=== PATIENT | female | born 1950 | race Caucasian/White ===

== ENCOUNTER 2023-01-13 17:11 | Emergency (ER) | payer OTHER, SELFPAY ==
[2023-01-13 17:15] VITALS: BP 122/67; PULSE 73; RESP 18; TEMP 36.1; O2SAT 97; BMI 28.3
--- NOTE | 2023-01-13 17:36 | ED.DIZZY ---
HPI - Dizziness General Chief Complaint: Dizziness/Vertigo Stated Complaint: lightheadedness,chest pain Time Seen by Provider: 01/13/23 17:23 History of Present Illness HPI Narrative: This 72-year-old female comes in reporting intermittent episodes of lightheadedness over the past week or so. She did have some nausea but states that she went to urgent care elsewhere and received a medication which causal symptoms to be managed properly. She reports some rib pain below her breasts bilaterally. She is very hard of hearing. She is not on any other new medications. She does have diabetes. She does not report any shortness of breath or diaphoresis. She has not had any vomiting or diarrhea. Related Data Home Medications Medication Instructions Recorded Confirmed amlodipine 5 mg tablet 5 mg PO DAILY 01/13/23 01/13/23 glipizide 10 mg tablet, extended 10 mg PO BID 01/13/23 01/13/23 release 24 hr levothyroxine 100 mcg tablet 100 mcg PO DAILY 01/13/23 01/13/23 linagliptin 5 mg tablet (Tradjenta) 5 mg PO DAILY diabetes mellitus 01/13/23 01/13/23 lisinopril 40 mg tablet 40 mg PO DAILY 01/13/23 01/13/23 metformin 1,000 mg tablet 1,000 mg PO BID 01/13/23 01/13/23 pioglitazone 30 mg tablet 30 mg PO DAILY 01/13/23 01/13/23 Allergies Allergy/AdvReac Type Severity Reaction Status Date / Time lactase [From Dairy Aid] Allergy Verified 01/13/23 17:20 [id number] Reductase Allergy Verified 01/13/23 17:20 Inhibitor Review of Systems Status of ROS: Reports: 10 or more systems reviewed and unremarkable except as noted in History and below Narrative: Constitutional: No fevers, no weight gain or loss. Eyes: No discharge. No vision changes. HENT: No congestion, no sore throat, no ear pain. Cardiovascular: No chest pain, no palpitations. Respiratory: No shortness of breath, no wheezes, no cough. Gastrointestinal: No abdominal pain, no vomiting, no diarrhea. Genitourinary: No dysuria, no hematuria. Musculoskeletal: Normal range of motion. Skin: No rashes, no pruritis. Neurological: No weakness, sensory change, speech change. She reports some lightheadedness episodes occasionally. Endo/Heme/Allergies: No bruising or bleeding. No polydipsia. Pysch: no suicidality, no anxiety, no insomnia. All other systems reviewed and are negative. Exam Narrative: Exam Narrative: Constitutional: Well-developed, well-nourished, no acute distress. HEENT: Normocephalic, atraumatic. Neck: Normal range of motion. Nontender. Supple. Heart: Regular. No murmurs. Normal rate. Intact distal pulses. Lungs: Clear to auscultation. No chest discomfort. No wheezes, rhonchi, or rales. Abdomen: Normal bowel sounds. Nontender. No rebound tenderness. Genitalia: Deferred. Back: No midline tenderness. Normal range of motion. Extremities: Normal range of motion. No injury. Skin: Intact. No rash. Warm. No erythema or pallor. Neurologic: No altered sensation. No weakness. Alert and oriented. Psychiatric: No suicidality. No anxiety or depression. No insomnia. Nursing notes and vitals signs are reviewed. Const: Vital Signs, click to edit/add: Vital Signs - 24 hr 01/13/23 17:15 Temperature 96.9 F L Pulse Rate [Right Pulse Oximeter] 73 Respiratory Rate 18 Blood Pressure [Ri ght Upper Arm] 122/67 Pulse Oximetry 97 Oxygen Delivery Me thod Room Air Course Vital Signs Vital signs: Initial Vital Signs Temperature 96.9 F L 01/13/23 17:15 Temperature Source Temporal Artery Scan 01/13/23 17:15 Pulse Rate 73 01/13/23 17:15 Respiratory Rate 18 01/13/23 17:15 Blood Pressure 122/67 01/13/23 17:15 Blood Pressure Mean 85 01/13/23 17:15 Blood Pressure Position Sitting 01/13/23 17:15 Pulse Oximetry 97 01/13/23 17:15 Oxygen Delivery Method Room Air 01/13/23 17:15 Vital Signs Temperature 96.9 F L 01/13/23 17:15 Pulse Rate 73 01/13/23 17:15 Respiratory Rate 18 01/13/23 17:15 Blood Pressure 122/67 01/13/23 17:15 Pulse Oximetry 97 01/13/23 17:15 Oxygen Delivery Method Room Air 01/13/23 17:15 Temperature 96.9 F L 01/13/23 17:15 Pulse Rate 73 01/13/23 17:15 Respiratory Rate 18 01/13/23 17:15 Blood Pressure 122/67 01/13/23 17:15 Pulse Oximetry 97 01/13/23 17:15 Oxygen Delivery Method Room Air 01/13/23 17:15 MDM - Dizziness MDM Narrative Medical decision making narrative: This patient is reporting some episodes of lightheadedness over the past week. She arrives with normal vital signs and has a blood pressure of with a systolic value of 122. She is also reporting some discomfort in her ribs anteriorly just below her breasts. EKG shows normal sinus rhythm. Lab results also returned with normal results. Her troponin returns at 0. These results are very reassuring and are communicated with the patient. This patient is taking lisinopril 40 mg and amlodipine 5 mg daily. It could be that her blood pressure medicine is contributing to some lightheadedness. I advised her to hold the amlodipine for a few days and record her blood pressures. She should follow-up with her primary physician to review her medications. Lab Data Labs: Lab Results 01/13/23 01/13/23 Range/Units 17:29 17:57 WBC 12.19 H (4.50-11.00) K/uL RBC 4.56 (4.00-5.20) m/uL Hgb 13.6 (12.0-16.0) gm/dL Hct 41.9 (33.0-51.0) % MCV 92 (80-100) fL MCH 30 (26-34) pg MCHC 33 (32-36) gm/dL RDW Coeff of Joslyn 13.1 (11.5-15.5) % Plt Count 283 (140-440) K/uL Neut % (Auto) 70.6 (42.0-72.0) % Lymph % (Auto) 15.4 L (20-44) % Guthrie % (Auto) 7.8 (0.0-11.0) % Eos % (Auto) 1.6 (0.0-7.0) % Baso % (Auto) 0.6 (0.0-3.0) % Neut # (Auto) 8.60 H (1.7-7.0) K/uL Lymph # (Auto) 1.90 (0.90-2.90) K/uL Guthrie # (Auto) 1.00 H (0.00-0.90) K/UL Eos # (Auto) 0.20 (0.00-0.50) K/uL Baso # (Auto) 0.10 (0.00-0.30) K/uL Abs Immat Gran (auto) 0.50 H (0.00-0.30) K/uL Imm/Tot Granulo (auto) 4.0 % Diff Slide Review Acceptable Review (Acceptable) Sodium 136 (135-149) mmol/L Potassium 4.9 (3.6-5.1) mmol/L Chloride 105 (96-114) mmol/L Carbon Dioxide 22 (20-32) mmol/L BUN 20 (7-30) mg/dL Creatinine 0.9 (0.5-1.5) mg/dL Estimated Creat Clear 36.53 Estimated GFR 68 ml/min Glucose 143 H (60-115) mg/dL Calcium 9.4 (8.4-10.6) mg/dL POC Troponin I 0.00 L (0.01-0.04) ng/ml ECG Data Attestation: I personally reviewed and interpreted this ECG as follows: Interpretation: Normal sinus rhythm. Rate is 70 beats per minute. There are no ST or T-wave abnormalities. Discharge Plan Discharge Clinical Impression: Episodic lightheadedness, Acute chest wall pain Patient Disposition: Home, Self-Care Condition: Stable Additional Instructions: Okay to hold amlodipine for a few days during which time you should record blood pressures and consider if lightheadedness episodes are absent or decreased. Follow-up with primary physician to review medications. Return if worsening. Prescriptions: No Action glipizide 10 mg tablet extended release 24hr 10 mg PO BID amlodipine 5 mg tablet 5 mg PO DAILY levothyroxine 100 mcg tablet 100 mcg PO DAILY metformin 1,000 mg tablet 1,000 mg PO BID pioglitazone 30 mg tablet 30 mg PO DAILY lisinopril 40 mg tablet 40 mg PO DAILY Tradjenta 5 mg tablet 5 mg PO DAILY Follow Up/Referrals: Jared Alves MD [Primary Care Provider] - Stand Alone Forms: [employer] Info Instructions
[2023-01-13 17:43] LABS: Basophils Percent Auto 0.6 % (0.0-3.0); Eosinophils Percent Auto 1.6 % (0.0-7.0); Hematocrit 41.9 % (33.0-51.0); Hemoglobin* 13.6 gm/dL (12.0-16.0); Lymphocytes Percent Auto 15.4 % (20-44); Mean Corpuscular HGB Conc 33 gm/dL (32-36); Mean Corpuscular Hemoglobin 30 pg (26-34); Mean Corpuscular Volume 92 fL (80-100); Monocytes Percent Auto 7.8 % (0.0-11.0); Neutrophils Percent Auto 70.6 % (42.0-72.0); Platelet Count* 283 K/uL (140-440); RDW Coefficient of Variation % 13.1 % (11.5-15.5); Red Blood Count 4.56 m/uL (4.00-5.20); White Blood Count* 12.19 K/uL (4.50-11.00)
[2023-01-13 17:49] LABS: Slide Review Reflex Yes
[2023-01-13 17:55] LABS: Chloride* 105 mmol/L (96-114); Potassium* 4.9 mmol/L (3.6-5.1); Sodium* 136 mmol/L (135-149)
[2023-01-13 17:57] LABS: Creatinine* 0.9 mg/dL (0.5-1.5); Est. Creatinine Clearance* 36.53; Estimated Glomerular Filt Rate 68 ml/min
[2023-01-13 17:58] LABS: Blood Urea Nitrogen* 20 mg/dL (7-30); Calcium* 9.4 mg/dL (8.4-10.6); Carbon Dioxide* 22 mmol/L (20-32); Glucose* 143 mg/dL (60-115)
[2023-01-13 18:11] LABS: Slide Review Acceptable Review (Acceptable)
== END 2023-01-13 18:34 | disposition home or self-care (01) ==
PROVIDERS: Emergency Provider Emergency Medicine Emergency Medical Services; PCP Family Medicine
DX: R07.89 Other chest pain (principal); R42 Dizziness and giddiness
CPT/HCPCS: 36415; 80048; 84484; 85025; 93005; 99284